=== PATIENT | male | born 1935 | race Caucasian/White ===

== ENCOUNTER → 2020-03-29 11:38 | Outpatient (CLI) | payer MEDICARE, OTHER, SELFPAY ==
--- NOTE | 2020-03-29 | DI.MRI.S_ITS ---
PROCEDURE: MR KNEE LT WO CON INDICATIONS: Unspecified internal derangement of left knee TECHNIQUE: Noncontrast sagittal PD fast spin echo and T2 fast spin echo with fat saturation, sagittal 3-D FLASH with fat saturation; coronal T1 spin echo and PD fast spin echo with fat saturation, and axial PD fast spin echo with fat saturation through the knee. COMPARISON: None. FINDINGS: Image quality: Excellent. Menisci: There is an oblique tear involving posterior horn of medial meniscus extending to inferior articulating surface. Peripheral displacement of medial meniscus bowing medial collateral ligament is seen. There is no evidence of focal lateral meniscal tear. The meniscal root ligaments appear intact. Cruciate ligaments: Markedly thickened anterior cruciate ligament with significant intrasubstance fluid signal is noted suggestive of moderate grade intrasubstance partial-thickness tear involving anterior cruciate ligament. No gross full-thickness ACL rupture is noted. Posterior cruciate ligament is intact. Medial structures: Moderate grade MCL sprain is seen. The posterior oblique ligament, semimembranosus tendon insertions, oblique popliteal ligament, and meniscocapsular junction appear intact. Visualized portions of the pes anserinus tendons appear normal. No abnormal bursal fluid. Lateral structures: The lateral collateral ligament, long and short heads of the biceps femoris tendon appear intact. The popliteus tendon appears normal; the popliteofibular ligament appears intact. The posterosuperior and anteroinferior popliteomeniscal fascicles appear intact. The arcuate and fabellofibular ligaments appear intact, on either side of the lateral inferior geniculate artery. Iliotibial band appears normal. Anterior structures: The quadriceps and patellar tendons appear intact. Patellar alignment is normal. No femoral trochlear dysplasia or ventral trochlear prominence. No edema in the infrapatellar fat pad. Bones and cartilage: There is marrow edema involving tibial spine near ACL insertion. No discrete fracture line is seen. Mild marrow edema involving the anterior and posterior aspect of medial femoral condyle is seen with no discrete fracture line. Mild to moderate tricompartmental osteoarthritis and chondromalacia is seen more prominent in the medial femoral tibial compartment. Joint space: There is moderate amount of joint fluid, and no gross intra-articular loose body. No popliteal cyst is seen. Normal appearing synovial plicae are incidentally noted. IMPRESSION: 1. Complex oblique tear involving posterior horn of medial meniscus extending to inferior articulating surface. Medial peripheral displacement of medial meniscus bowing medial collateral ligament. 2. No evidence of focal lateral meniscal tear. 3. 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 No full-thickness ACL rupture. PCL is intact. 4. Moderate grade MCL sprain. 5. 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 Moderate amount of joint fluid, no gross intra-articular loose body. Nonspecific lateral edema involving medial femoral condyle and tibial spine suggestive of bony contusion. No fracture or dislocation. Dictated by: Joey Medellin M.D. on 03/29/2020 at 13:25 Approved by: Joey Medellin M.D. on 03/29/2020 at 13:38
== END ==
PROVIDERS: Family Provider Family Medicine; PCP Family Medicine; Referring Provider Family Medicine; Visit Provider Family Medicine
DX: S83.232A Complex tear of medial meniscus, current injury, left knee, initial encounter (principal); S83.412A Sprain of medial collateral ligament of left knee, initial encounter; M17.12 Unilateral primary osteoarthritis, left knee; M94.262 Chondromalacia, left knee
CPT/HCPCS: 73721

== ENCOUNTER → 2021-12-03 10:34 | Outpatient (CLI) | payer MEDICARE, OTHER, SELFPAY ==
[2021-12-03 12:26] LABS: COVID19 -Nasal RAPID Negative (Negative)
== END ==
PROVIDERS: Family Provider Family Medicine; PCP Family Medicine; Referring Provider Family Medicine Sleep Medicine; Visit Provider Family Medicine Sleep Medicine
DX: Z20.822 Contact with and (suspected) exposure to COVID-19 (principal)
CPT/HCPCS: 87635; C9803

== ENCOUNTER 2021-12-04 10:25 | Day surgery (SDC) | payer MEDICARE, OTHER, SELFPAY ==
[2021-12-04] MEDS: PROPARACAINE 0.5% OPHTH SOL 2 DROPS EYE-OP (10:35)
[2021-12-04] MEDS: CATARACT EYE COMPOUND (10 DROPS/SYRINGE) 3 DROPS EYE-OP (10:35)
[2021-12-04 10:50] VITALS: BMI 23.7
[2021-12-04 10:58] VITALS: BP 165/86; PULSE 58; RESP 14; TEMP 37.2; O2SAT 99
--- NOTE | 2021-12-04 12:06 | P.OP.PRE_ITS ---
Pre-operative Note Interval Note History & Physical reviewed/Exam performed by Physician: Yes Changes to H&P: No Addendum Addendum Note: There are no non surgical alternatives for the patient's condition. Deterior ation of the patient's condition is expected. Delay may result in more complex future surgery.
--- NOTE | 2021-12-04 12:07 | PM.OP.1 ---
Operative Date/Time/Diagnoses Pre-op diagnosis: Nuclear cataract right eye Procedure & Clinicians Procedure: Cataract Surgery Same procedure as scheduled: Yes Surgeon: Paramjit Antoine Anesthesia Type: MAC +/- and Sedation Operative Notes Procedure in detail: Patient brought to the operating suite. Tetracaine drops placed in the right eye. Patient was prepped and draped in sterile manner. Wire lid speculum was placed in the eye. Betadine drops were placed on the eye. This was irrigated. Lidocaine jelly was placed on the eye. A paracentesis port was created with a side-port blade. 0.1 mL 1% preservative free lidocaine was injected into the anterior chamber. The anterior chamber was deepened with viscoelastic. 2.6 mm keratome was used to create a temporal clear corneal incision. Cystotome and Utrata forceps were used to create continuous tear capsulorrhexis. Balanced salt solution was used to hydro dissect the nucleus. The phacoemulsification handpiece was inserted and the nucleus was removed using the stop and chop technique. The irrigation aspiration handpiece was inserted and the remaining cortex was removed. Anterior chamber was deepened with viscoelastic. An Shen DIB00 intraocular lens with a power of 21.0 was injected into the capsular bag. Irrigation aspiration handpiece was inserted and the remaining viscoelastic was removed. The incision was leaking. One 10-0 nylon suture was used to close the incision. Incision was hydrated with balanced salt solution and found to be leak free with pressure with Weck-Michelle sponges. 0.1 mL Vigamox injected anterior chamber. 0.3 mL Kenalog 10 mg was injected subconjunctivally. Lid speculum was removed. The patient left the operating room in excellent condition. Complications: none Post-operative Condition: stable Disposition: same day surgery
--- NOTE | 2021-12-04 12:21 | SUR.OPER ---
Supine on eye stretcher, head on extension cradle secured with tape. Arms tucked at sides with blanket. Pillow under knees.
[2021-12-04] MEDS: MOXIFLOXACIN INJ 4 MG/0.8 ML VIAL 0.5 MG EYE-OP (12:26)
[2021-12-04] MEDS: HYALURONATE SODIUM 30 MG-10 MG/ML SYRINGES 1 BOX INTRAOCULA (12:26)
[2021-12-04] MEDS: LIDOCAINE 2% (GLYDO) 6 ML GEL TOP (12:27)
[2021-12-04] MEDS: BALANCED SALT IRRIG SOLN NO.2 500 ML, EPINEPHrine 1 MG IRR (12:27)
[2021-12-04] MEDS: TRIAMCINOLONE 50 MG/5 ML VIAL INJ (12:27)
[2021-12-04] MEDS: PHENYLEPHRINE/LIDOCAINE VIAL (OR) 0.2 ML EYE-OP (12:27)
[2021-12-04] MEDS: TETRACAINE 0.5% OPHTH DROPS 4 ML 2 DROPS EYE-OP (12:27)
[2021-12-04 12:55] VITALS: BP 176/90; PULSE 56; RESP 16; TEMP 36.6; O2SAT 100
--- NOTE | 2021-12-04 13:06 | SUR.PHASEII ---
12/04/21 1305-Patient wide awake,alert,and oriented. vss. denies pain or nausea. Reiterated home instructions. meets criteria for discharge. iv out. Dressed self. son called for pick remover. 1310-Discharged per policy by wheelchair to son's care/car with all belongings,paperwork, and tape.
== END 2021-12-04 13:10 | disposition home or self-care (01) ==
PROVIDERS: Family Provider Family Medicine; PCP Family Medicine; Referring Provider Ophthalmology; Visit Provider Ophthalmology
PROC: (CPT 66984; principal; 2021-12-04 12:15)
DX: H25.11 Age-related nuclear cataract, right eye (principal)
CPT/HCPCS: 66984; J0171; J2250; J3010; J3301

== ENCOUNTER → 2021-12-17 10:54 | Outpatient (CLI) | payer MEDICARE, OTHER, SELFPAY ==
[2021-12-17 12:58] LABS: COVID19 -Nasal RAPID Negative (Negative)
== END ==
PROVIDERS: Family Provider Family Medicine; PCP Family Medicine; Visit Provider Family Medicine Sleep Medicine
DX: Z20.822 Contact with and (suspected) exposure to COVID-19 (principal)
CPT/HCPCS: 87635

== ENCOUNTER 2021-12-18 11:20 | Day surgery (SDC) | payer MEDICARE, OTHER, SELFPAY ==
[2021-12-18 11:40] VITALS: BP 154/84; PULSE 69; RESP 16; TEMP 37.1; O2SAT 97; BMI 23.7
[2021-12-18] MEDS: PROPARACAINE 0.5% OPHTH SOL 2 DROPS EYE-OP (11:53)
[2021-12-18] MEDS: CATARACT EYE COMPOUND (10 DROPS/SYRINGE) 3 DROPS EYE-OP (11:55)
--- NOTE | 2021-12-18 12:39 | P.OP.PRE_ITS ---
Pre-operative Note Interval Note History & Physical reviewed/Exam performed by Physician: Yes Changes to H&P: No Addendum Addendum Note: There are no non surgical alternatives to the patient's condition. The patie nt's condidtion is expected to progress. Delay may result in more complex future surgery.
--- NOTE | 2021-12-18 12:40 | PM.OP.1 ---
Operative Date/Time/Diagnoses Pre-op diagnosis: Nuclear Cataract Left eye Post-op diagnosis: same Procedure & Clinicians Same procedure as scheduled: Yes Surgeon: Paramjit Antoine Anesthesia Type: MAC +/- and Sedation Operative Notes Procedure in detail: Patient brought to the operating suite. Tetracaine drops placed in the left eye. Patient was prepped and draped in sterile manner. Wire lid speculum was placed in the eye. Betadine drops were placed on the eye. This was irrigated. Lidocaine jelly was placed on the eye. A paracentesis port was created with a side-port blade. 0.1 mL 1% preservative free lidocaine was injected into the anterior chamber. The anterior chamber was deepened with viscoelastic. 2.6 mm keratome was used to create a temporal clear corneal incision. Cystotome and Utrata forceps were used to create continuous tear capsulorrhexis. Balanced salt solution was used to hydro dissect the nucleus. The phacoemulsification handpiece was inserted and the nucleus was removed using the stop and chop technique. The irrigation aspiration handpiece was inserted and the remaining cortex was removed. Anterior chamber was deepened with viscoelastic. An Shen DIB00 intraocular lens with a power of 22.0 was injected into the capsular bag. Irrigation aspiration handpiece was inserted and the remaining viscoelastic was removed. Incision was hydrated with balanced salt solution and found to be leak free with pressure with Weck-Michelle sponges. 0.1 mL Vigamox injected anterior chamber. 0.3 mL Kenalog 10 mg was injected subconjunctivally. Lid speculum was removed. The patient left the operating room in excellent condition. Complications: none Post-operative Condition: stable Disposition: same day surgery
[2021-12-18] MEDS: HYALURONATE SODIUM 30 MG-10 MG/ML SYRINGES 1 BOX INTRAOCULA (12:56)
[2021-12-18] MEDS: MOXIFLOXACIN INJ 4 MG/0.8 ML VIAL 0.5 MG EYE-OP (12:57)
[2021-12-18] MEDS: BALANCED SALT IRRIG SOLN NO.2 500 ML, EPINEPHrine 1 MG IRR (12:57)
[2021-12-18] MEDS: PHENYLEPHRINE/LIDOCAINE VIAL (OR) 0.2 ML EYE-OP (12:57)
[2021-12-18] MEDS: TRIAMCINOLONE 50 MG/5 ML VIAL INJ (12:57)
[2021-12-18] MEDS: TETRACAINE 0.5% OPHTH DROPS 4 ML 2 DROPS EYE-OP (12:58)
[2021-12-18] MEDS: LIDOCAINE 2% (GLYDO) 6 ML GEL TOP (12:58)
[2021-12-18 13:10] VITALS: BP 169/80; PULSE 62; RESP 20; TEMP 36.7; O2SAT 96
--- NOTE | 2021-12-18 13:26 | SUR.PHASEII ---
12/18/[id number] per criteria with all instructions,roll of tape and eye implant card with patient. has all belongings. brought to son's car by wheelchair.
== END 2021-12-18 13:36 | disposition home or self-care (01) ==
PROVIDERS: Family Provider Family Medicine; PCP Family Medicine; Referring Provider Ophthalmology; Visit Provider Ophthalmology
PROC: (CPT 66984; principal; 2021-12-18 13:15)
DX: H25.12 Age-related nuclear cataract, left eye (principal)
CPT/HCPCS: 66984; J0171; J2250; J3010; J3301